=== PATIENT | male | born 1970 | race Caucasian/White ===

== ENCOUNTER 2018-08-15 13:20 | Day surgery (SDC) | payer MEDICARE, BC ==
[2018-08-15] MEDS ORDERED: LIDOCAINE 2% (SDV) 5 ML INJ (17:13)
[2018-08-15] MEDS ORDERED: PROPOFOL 40 ML (17:13)
== END 2018-08-15 18:34 | disposition home or self-care (01) ==
LOC: GIL 13:20
DX: I85.00 Esophageal varices without bleeding (principal); K29.70 Gastritis, unspecified, without bleeding
CPT/HCPCS: 43239; 88305; 88312

== ENCOUNTER 2019-06-27 11:23 | Day surgery (SDC) | payer MEDICARE, BC ==
[2019-06-27] MEDS ORDERED: PROPOFOL 40 ML (15:08)
== END 2019-06-27 15:47 | disposition home or self-care (01) ==
LOC: GIL 11:23
DX: I85.00 Esophageal varices without bleeding (principal); K76.6 Portal hypertension; K31.89 Other diseases of stomach and duodenum; J45.909 Unspecified asthma, uncomplicated
CPT/HCPCS: 43244